=== PATIENT | male | born 1995 ===

== ENCOUNTER 2017-07-23 19:00 | Emergency (ER) | payer BC ==
[2017-07-23 19:04] VITALS: BP 126/78; PULSE 73; RESP 16; TEMP 98; O2SAT 100
--- NOTE | 2017-07-23 19:52 | ED PDOC ---
HPI: Chest Pain Time Seen by Provider: 07/23/17 19:21 Chief Complaint (Nursing): Chest Pain Chief Complaint (Provider): chest pain History Per: Patient History/Exam Limitations: no limitations Onset/Duration Of Symptoms: Days (x3) Current Symptoms Are (Timing): Still Present Additional Complaint(s): 22 year old male who presents to the emergency department with a complaint of left-sided chest pain exasperated with left arm movement and deep breaths ongoing for 3 days. Denied any fever, chills or cough. Patient stated he had 1 similar episode in the past which had resolved on its own spontaneously. PMD: Rosita Hankins MD Past Medical History Reviewed: Historical Data, Nursing Documentation, Vital Signs Vital Signs: Last Vital Signs Temp 98.0 F 07/23/17 19:03 Pulse 73 07/23/17 19:03 Resp 16 07/23/17 19:03 BP 126/78 07/23/17 19:03 Pulse Ox 100 07/23/17 20:25 - Medical History PMH: No Chronic Diseases - Surgical History Surgical History: No Surg Hx - Family History Family History: States: Unknown Family Hx - Social History Current smoker - smoking cessation education provided: No Drugs: Denies - Home Medications Home Medications: Ambulatory Orders Medication Instructions Recorded Cyclobenzaprine [Cyclobenzaprine 10 mg PO BID #15 tab 07/23/17 HCl] Ibuprofen [Motrin Tab] 600 mg PO Q6 #30 tab 07/23/17 - Allergies Allergies/Adverse Reactions: Allergies Allergy/AdvReac Type Severity Reaction Status Date / Time Penicillins Allergy RASH Verified 07/23/17 19:03 Review of Systems ROS Statement: Except As Marked, All Systems Reviewed And Found Negative Constitutional: Negative for: Fever, Chills Cardiovascular: Positive for: Chest Pain (left-sided) Respiratory: Negative for: Cough Physical Exam - Reviewed Nursing Documentation Reviewed: Yes Vital Signs Reviewed: Yes - Physical Exam Appears: Positive for: Well, Non-toxic, No Acute Distress Head Exam: Positive for: ATRAUMATIC, NORMAL INSPECTION, NORMOCEPHALIC Cardiovascular/Chest: Positive for: Regular Rate, Rhythm, Chest Non Tender Respiratory: Positive for: Normal Breath Sounds. Negative for: Decreased Breath Sounds, Wheezing, Respiratory Distress Gastrointestinal/Abdominal: Positive for: Normal Exam, Soft. Negative for: Tenderness Back: Positive for: Normal Inspection. Negative for: L CVA Tenderness, R CVA Tenderness Extremity: Positive for: Normal ROM (upper/lower). Negative for: Pedal Edema ( bilateral), Calf Tenderness (bilateral) Neurologic/Psych: Positive for: Alert (x3), sole stitcher hand II-XII (intact), Oriented. Negative for: Motor/Sensory Deficits - ECG O2 Sat by Pulse Oximetry: 100 (RA) Pulse Ox Interpretation: Normal Medical Decision Making Medical Decision Making: Initial Impression: Musculoskeletal chest pain; pneumonia; costochondritis Initial Plan: * CXR * Flexeril 10mg PO * Motrin 600mg PO ____ Time: 1919 --EKG: NSR at [address] or T-wave changes. Incomplete right bundle branch block noted. Time: 2008 --CXR: FINDINGS: Lungs: Unremarkable. No consolidation. Pleural space: Unremarkable. No pneumothorax. Heart: Unremarkable. No cardiomegaly. Mediastinum: Unremarkable. Bones/joints: No acute findings. IMPRESSION: No acute findings Time: 2019 --Upon provider reevaluation, patient is medically stable and requires no further treatment in the ED at this time. Patient will be discharged home. Counseling was provided and all questions were answered regarding diagnosis. There is agreement to discharge plan. Return if symptoms persist or worsen. Clinical Impression: Atypical chest pain; chest wall pain Scribe Attestation: Documented by Radha Clayton, acting as a scribe for Yomi Sahu MD. Provider Scribe Attestation: All medical record entries made by the Scribe were at my direction and personally dictated by me. I have reviewed the chart and agree that the record accurately reflects my personal performance of the history, physical exam, medical decision making, and the department course for this patient. I have also personally directed, reviewed, and agree with the discharge instructions and disposition. Disposition - Clinical Impression Clinical Impression: Chest wall pain, Atypical chest pain - Patient ED Disposition Is Patient to be Admitted: No Counseled Patient/Family Regarding: Studies Performed, Diagnosis - Disposition Referrals: formerly [facility] [Outside] Disposition: Routine/Home Disposition Time: 20:20 Condition: GOOD Prescriptions: Cyclobenzaprine [Cyclobenzaprine HCl] 10 mg PO BID #15 tab Ibuprofen [Motrin Tab] 600 mg PO Q6 #30 tab Instructions: Chest Pain (ED), Musculoskeletal Pain (ED) Forms: [employer] (Italian)
--- NOTE | 2017-07-24 09:12 | RAD ---
HISTORY: cp, sob COMPARISON: No prior. TECHNIQUE: Chest PA and lateral FINDINGS: LUNGS: No active pulmonary disease. PLEURA: No significant pleural effusion identified. No pneumothorax apparent. CARDIOVASCULAR: Normal. OSSEOUS STRUCTURES: No significant abnormalities. VISUALIZED UPPER ABDOMEN: Normal. OTHER FINDINGS: None. IMPRESSION: No active disease.
== END 2017-07-23 20:40 | disposition home or self-care (01) ==
LOC: H.ER 19:00
DX: M94.0 Chondrocostal junction syndrome [Tietze] (principal); Z88.0 Allergy status to penicillin

== ENCOUNTER 2017-07-27 17:45 | Emergency (ER) | payer BC ==
[2017-07-27 17:50] VITALS: BP 133/82; PULSE 80; RESP 16; TEMP 98.2; O2SAT 99
--- NOTE | 2017-07-27 18:09 | ED PDOC ---
HPI: Eye Injury/Pain Time Seen by Provider: 07/27/17 17:51 Chief Complaint (Nursing): Eye Problem Chief Complaint (Provider): "eye cyst" History Per: Patient Additional Complaint(s): Patient complaints of cyst to left eye brow, beginning in the summer. Reports he was seen in ED in [facility] and they stated he will need it removed surgically. Complaints of pain to left eye and left eye blurriness x months. Pt scheduled to see derm on Aug 08 Past Medical History Reviewed: Nursing Documentation, Vital Signs Vital Signs: Last Vital Signs Temp 98.2 F 07/27/17 17:48 Pulse 80 07/27/17 17:48 Resp 16 07/27/17 17:48 BP 133/82 07/27/17 17:48 Pulse Ox 99 07/27/17 17:48 - Medical History PMH: No Chronic Diseases - Surgical History Surgical History: No Surg Hx - Family History Family History: States: Unknown Family Hx - Living Arrangements Living Arrangements: With Family - Social History Current smoker - smoking cessation education provided: No Alcohol: Social Drugs: Denies - Home Medications Home Medications: Ambulatory Orders Medication Instructions Recorded Cyclobenzaprine [Cyclobenzaprine 10 mg PO BID #15 tab 07/23/17 HCl] Ibuprofen [Motrin Tab] 600 mg PO Q6 #30 tab 07/23/17 Clindamycin Phos/Benzoyl Perox 1 gel TP BID #1 gel 07/27/17 [Clindamycin Phosphate-Benzoyl Peroxide 5%-1%] - Allergies Allergies/Adverse Reactions: Allergies Allergy/AdvReac Type Severity Reaction Status Date / Time Penicillins Allergy RASH Verified 07/23/17 19:03 Review of Systems ROS Statement: Except As Marked, All Systems Reviewed And Found Negative Skin: Positive for: Lesions Physical Exam - Reviewed Nursing Documentation Reviewed: Yes Vital Signs Reviewed: Yes - Physical Exam Appears: Positive for: Well, Non-toxic, No Acute Distress Head Exam: Positive for: ATRAUMATIC, NORMAL INSPECTION, NORMOCEPHALIC Skin: Positive for: Warm Eye Exam: Positive for: EOMI, Normal appearance, PERRL ENT: Positive for: Normal ENT Inspection Neck: Positive for: Normal, Painless ROM Cardiovascular/Chest: Positive for: Regular Rate, Rhythm Respiratory: Positive for: CNT, Normal Breath Sounds Gastrointestinal/Abdominal: Positive for: Normal Exam, Bowel Sounds, Soft Back: Positive for: Normal Inspection Extremity: Positive for: Normal ROM Neurologic/Psych: Positive for: Alert, Oriented Comments: small 2 cm sebaceous cyst noted to left eyebrow - ECG O2 Sat by Pulse Oximetry: 99 Medical Decision Making Medical Decision Making: warm compresses advised. site incised and drained of purueltn material Pt advised to continue follow up with derm as scheduled for Aug 08 Disposition - Clinical Impression Clinical Impression: Sebaceous cyst - Patient ED Disposition Is Patient to be Admitted: No - Disposition Disposition: Routine/Home Disposition Time: 19:48 Condition: STABLE
== END 2017-07-27 18:24 | disposition home or self-care (01) ==
LOC: H.ER 17:45
DX: L72.3 Sebaceous cyst (principal); Z88.0 Allergy status to penicillin